=== PATIENT | female | born 1995 | race Caucasian/White ===

== ENCOUNTER 2022-03-07 13:34 | Emergency (ER) | payer MEDICAID, SELFPAY ==
[2022-03-07 13:56] VITALS: BP 142/90; PULSE 100; RESP 18; TEMP 36.6; O2SAT 96; BMI 52.0
--- NOTE | 2022-03-07 14:03 | PC.NURSE ---
Numbers for [employer]- [employer] [phone] Amanda- finance manager [phone] Call for any updates
[2022-03-07 14:36] LABS: Amphetamine Screen Urine Not Detected (Not Detect); Barbiturates, Urine Not Detected (Not Detect); Benzodiazepines Screen Urine Not Detected (Not Detect); Cannabinoid Screen Urine Not Detected (Not Detect); Cocaine Screen Urine Not Detected (Not Detect); Fentanyl, urine Not Detected (Not Detect); Opiate Screen Urine Not Detected (Not Detect); Phencyclidine Screen Urine Not Detected (Not Detect)
[2022-03-07 14:37] LABS: COVID-19 Test Negative (Negative)
[2022-03-07] MEDS: Cyclobenzaprine HCl 5 MG TABLET PO (15:13)
[2022-03-07] MEDS: Acetaminophen 325 MG TABLET 650 MG PO (15:13)
--- NOTE | 2022-03-07 15:25 | PC.NURSE ---
patient referred to [facility] and was medicated for pain awaiting eval
--- NOTE | 2022-03-07 15:25 | PC.NURSE ---
[facility] clinical director Billy coles [phone]
[2022-03-07 15:27] LABS: MANUAL DIFF FLAG NO
[2022-03-07 15:31] LABS: Basophils Absolute Auto 0.1 X10*3/uL (0.0-0.2); Basophils Percent Auto 0.8 % (0-2); Eosinophils Absolute Auto 0.1 X10*3/uL (0.0-0.4); Eosinophils Percent Auto 1.4 % (0-4); Hematocrit 39.2 % (37.0-47.0); Imm Gran Abs Auto 0.04 X10*3/uL (0.00-0.03); Imm Gran Pct Auto 0.4 % (0.0-0.4); Lymphocytes Absolute Auto 2.8 X10*3/uL (1.2-4.9); Lymphocytes Percent Auto 27.8 % (20-40); Mean Corpuscular HGB Conc 30.6 g/dl (31.0-35.0); Mean Corpuscular Hemoglobin 24.4 pg (27.0-33.0); Mean Corpuscular Volume 79.8 fL (80.0-98.0); Mean Platelet Volume 8.9 fL (9.4-12.3); Monocytes Absolute Auto 0.7 X10*3/uL (0.1-1.2); Neutrophils Absolute Auto 6.3 x10*3/uL (2.0-8.3); Neutrophils Percent Auto 62.6 % (45-73); Platelet Count 442 X10*3/uL (160-400); Red Blood Count 4.91 X10*6/uL (4.20-5.50); Red Cell Distribution Width 16.2 % (11.0-16.0); White Blood Count 10.1 X10*3/uL (4.8-10.8)
[2022-03-07 15:49] LABS: Ethanol < 10 mg/dL
[2022-03-07 15:50] LABS: Alanine Aminotransferase 15 U/L (0-31); Albumin Level 3.9 g/dL (3.5-5.0); Alkaline Phosphatase 106 U/L (39-117); Anion Gap 14 (12-20); Aspartate Amino Transferase 16 U/L (5-31); Bilirubin Total 0.2 mg/dL (0.0-1.0); Blood Urea Nitrogen 9 mg/dL (9-16); Calcium 9.4 mg/dL (8.4-10.2); Carbon Dioxide 24 mmol/L (22-29); Chloride 107 mmol/L (96-108); Creatinine Clr Calc Pharmacy 134.6; Estimated Glomerular Filt Rate > 60; Glucose Random 145 mg/dL (60-115); Potassium 4.1 mmol/L (3.3-5.1); Sodium 141 mmol/L (135-145); Total Protein 6.7 g/dL (6.5-8.0)
[2022-03-07 16:52] LABS: UPreg QC Valid YES; Urine Pregnancy NEGATIVE (NEGATIVE)
[2022-03-07 18:14] VITALS: BP 104/55; PULSE 81; RESP 16; TEMP 36.8; O2SAT 97
[2022-03-07] MEDS: Lactulose 20 GM/30 ML SOLUTION 10 GM PO (18:26)
[2022-03-07] MEDS: Prazosin HCL 5 MG CAPSULE PO (18:27)
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
[2022-03-07] MEDS: OLANZapine 5 MG TABLET PO (19:46)
[2022-03-07] MEDS: Docusate Sodium 100 MG CAPSULE PO (19:46)
[2022-03-07] MEDS: traZODone HCL 100 MG TABLET PO (19:46)
[2022-03-07 19:47] VITALS: BP 152/91; PULSE 110; RESP 18; O2SAT 96
[2022-03-07] MEDS: cloNIDine HCL 0.1 MG TABLET PO (19:47)
[2022-03-07] MEDS: LORazepam 1 MG TABLET 2 MG PO (19:56)
[2022-03-07] MEDS: diphenhydrAMINE HCL 25 MG TABLET 50 MG PO (19:57)
[2022-03-07] MEDS: Fluticasone Propionate 100 MCG BLST.W.DEV 1 PUFF INHALE (21:05)
[2022-03-08 03:12] VITALS: BP 123/80; PULSE 97; RESP 18; TEMP 36.8; O2SAT 97
--- NOTE | 2022-03-08 06:16 | PC.NURSE ---
Patient slept though the night, no distress observed/reported, behavior appropriate and non concerning at this time, medication compliant, longterm staff in waiting room, awaiting BHN evaluation in the morning, VSS, will continue to monitor.
[2022-03-08] MEDS: Omeprazole 20 MG CAPSULE.DR PO (07:00)
--- NOTE | 2022-03-08 07:09 | PC.NURSE ---
patient appears to remain asleep at present respirations are even and unlabored patient appears in no distress
[2022-03-08] MEDS: cloNIDine HCL 0.1 MG TABLET PO (08:39)
[2022-03-08] MEDS: Fluticasone Propionate 100 MCG BLST.W.DEV 1 PUFF INHALE (08:39)
[2022-03-08] MEDS: Docusate Sodium 100 MG CAPSULE PO (08:39)
[2022-03-08] MEDS: Ascorbic Acid 250 MG TABLET PO (08:40)
[2022-03-08] MEDS: Calcium + Vitamin D 250 MG TABLET 500 MG PO (08:40)
[2022-03-08] MEDS: Cholecalciferol (Vitamin D3) 25 MCG TABLET PO (08:40)
[2022-03-08] MEDS: Sennosides 8.6 MG TABLET PO (08:40)
[2022-03-08] MEDS: OLANZapine 5 MG TABLET PO (08:40)
[2022-03-08] MEDS: ARIPiprazole 20 MG TABLET PO (08:40)
[2022-03-08] MEDS: Tamsulosin HCL 0.4 MG CAPSULE PO (08:41)
== END 2022-03-08 09:52 | disposition home or self-care (01) ==
PROVIDERS: Physician Assistant; Emergency Provider Emergency Medicine Emergency Medical Services; PCP Nurse Practitioner Family
DX: R45.851 Suicidal ideations (principal); Z79.899 Other long term (current) drug therapy; Z91.51 Personal history of suicidal behavior; Z20.822 Contact with and (suspected) exposure to COVID-19
CPT/HCPCS: 36415; 80053; 80307; 81025; 82077; 85025; 87635; 99285; Q0163